=== PATIENT | female | born 1990 | race Caucasian/White ===

== ENCOUNTER 2019-09-01 14:55 | Inpatient (IN) | payer MEDICAID, SELFPAY ==
[2019-09-01] VITALS (36 sets, daily range): BP systolic 114–144; BP diastolic 55–88; PULSE 64–96; TEMP 36.4–37.1; O2SAT 97–99; BMI 38.6
[2019-09-01] MEDS: Lactated Ringers 1,000 ML 200 ML IV (15:10)
--- NOTE | 2019-09-01 15:43 | PCM.HP.OB ---
History Date of Admission: 09/01/19 Final DARIUS: 09/08/19 Final DARIUS Source: US <20 weeks Gestational age: 39 Weeks and 0 Days History of this : This is a 28 year-old, G 1P0 @ 39 weeks, presented to Office with swelling, weight gain and elevated BPs (dewayne BP 166/103) no headaches, Visual changes or RUQ pain. IOL planned for GEST HTN (pre E panel pending) Allergies prednisolone Allergy (Verified 09/01/19 15:28) Swelling Home Medications: Home Medications Albuterol IH (ProAir) [Proair Hfa (SP)Vent Pts] 1 puff INHALATION Q4H PRN PRN 09/01/19 Prenatabs FA 1 tab PO DAILY 09/01/19 Sertraline HCl [Zoloft] 25 mg PO DAILY 09/01/19 Alcohol: None History Past Pregnancies: Past Pregnancies Delivery Date Name GA/ Weeks Outcome Route Wt Infant Sex Labor Length Anesthesia Delivery Location Provider FOB Review of Systems Constitutional: Reports: Weight Change - +7# weight gain in 4 days. Denies: Anorexia Eyes: Denies: Blurred vision, Vision Change HEENT: Denies: Head Aches Cardiovascular: Denies: Chest Pain Gastrointestinal: Denies: Abdominal Pain Physical Exam Vitals: Vital Signs Temp Pulse BP Pulse Ox 98.8 F 96 142/85 H 97 09/01/19 15:23 09/01/19 15:35 09/01/19 15:35 09/01/19 15:23 General: Alert, Oriented x3 Abdomen: Soft, Non Tender Neurological: Cranial nerves II-XII grossly intact MAINTENANCE PARTS TECHNICIAN: Normal external genitalia Estimated gestational size: Appropriate for gestational size Presentation: Cephalic Cervix Dilation (cm): 0 Station: -1 Effacement (%): 90 Assessment/Plan This is a 28 year-old, G 1P0 @ 39 weeks, IOL for GEST HTN 1) admit to L&D 2) monitor VS 3) PITOCIN induction 4) PCN for GBS 5) PRE E labs- pending 6) anticipate
[2019-09-01] MEDS: Oxytocin 30 units/NS 500 ml 30 UNITS/500 ML IV.SOLN IV (15:57)
[2019-09-01 16:01] LABS: Absolute Lymphocyte Count 3.04 X10^3/uL (0.83-4.51); Basophil# 0.05 X10^3/uL; Basophil% 0.3 % (0-1); Eosinophil# 0.03 X10^3/uL; Eosinophils% 0.2 % (0-5); Hematocrit 39.2 % (37-47); Hemoglobin 13.6 g/dL (12.0-15.0); Lymphocyte # 3.04 X10^3/ul (4.0); Lymphocyte % 19.6 % (19-41); Mean Corp Hgb Conc 34.7 g/dL (32-36); Mean Corpuscular Volume 86.3 fL (81-99); Mean Platelet Vol. 12.7 fl (6.2-12.0); Monocyte# 1.19 X10^3/uL; Monocyte% 7.7 % (0-10); NRBC Flagged by Analyzer 0 % (0-5); Neutrophil # 10.97 X10^3/uL (2.7-7.7); Neutrophil % 70.7 % (47-70); Platelet Count 195 K/mm3 (150-450); RBC Distribution Width CV 13.5 % (11.6-14.6); RBC Distribution Width SD 41.9 fl (35.1-43.9); Red Blood Count 4.54 M/mm3 (4.2-5.4); White Blood Count 15.5 K/mm3 (4.4-11.0)
[2019-09-01 16:18] LABS: Protein, Urine (Random) < 6.0 mg/dL (<11.9)
[2019-09-01 16:23] LABS: Partial Thromboplast Time 25.4 Seconds (24.1-36.2)
[2019-09-01 16:28] LABS: AST(SGOT) 25 U/L (15-37); Alanine Aminotransfer ALT/SGPT 19 U/L (13-56); Creatinine, Serum 0.59 mg/dL (0.55-1.02); EST Glomerular Filtration Rate 128 mL/min (>60); Est Glom Filt Rate - Afr Amer 155 mL/min (>60); Estimated Creatinine Clearance 107.12 ml/min; Uric Acid 6.7 mg/dL (2.6-6.0)
[2019-09-01] MEDS: Lactated Ringers 500 ML 999 ML IV (21:20)
[2019-09-01] MEDS: fentaNYL-bupivacaine (epidural) 100 ML BAG EPIDURAL (22:07)
[2019-09-02] VITALS (64 sets, daily range): BP systolic 102–138; BP diastolic 57–80; PULSE 64–100; RESP 16–20; TEMP 36.2–37.4; O2SAT 90–100
[2019-09-02] MEDS: Lactated Ringers 1,000 ML 200 ML IV ×3 (00:22→11:45)
[2019-09-02] MEDS: Acetaminophen 325 MG Tablet PO ×2 (00:26→07:41)
[2019-09-02] MEDS: fentaNYL-bupivacaine (epidural) 100 ML BAG EPIDURAL ×4 (02:32→16:10)
[2019-09-02] MEDS: Lactated Ringers 500 ML 999 ML IV (05:48)
--- NOTE | 2019-09-02 07:53 | PCM.PN.BLA ---
Progress Note Seen at bedside, resting comfortably with epidural in place. Vaginal exam cervix feels very scarred I was able to penetrate through the cervical os and she is now 5-6/90%/0. Pitocin to continue at this time IUPC was placed. Anticipated normal spontaneous vaginal delivery. heart rate category 1 reactive. STROKE Vital Signs/Narrative: Vital Signs Temp Pulse BP Pulse Ox 09/02/19 07:17 77 133/80 H 100 09/02/19 06:39 98.7 F 09/02/19 06:05 74 116/59 L 100 09/02/19 05:22 83 119/62 09/02/19 05:13 98.5 F 67 100 09/02/19 04:01 83 102/59 L 97
[2019-09-02] MEDS: Ondansetron 4 MG/2 ML Vial IV (11:20)
--- NOTE | 2019-09-02 12:07 | PCM.PN.BLA ---
Progress Note pt seen at bedside VE: 9/100/0, Caput noted, position feels OP. pt having back pain. Continue pitocin- will recheck in one hour and start pushing if complete. STROKE Vital Signs/Narrative: Vital Signs Temp Pulse BP Pulse Ox 09/02/19 11:13 71 96 09/02/19 11:12 82 130/69 H 09/02/19 10:22 98.6 F 73 100 09/02/19 10:20 75 131/76 H 09/02/19 09:20 76 133/66 H 100
--- NOTE | 2019-09-02 17:06 | PCM.PN.BLA ---
Progress Note pt seen at bedside, doing well. Has some back pain at site of epidural placement but is otherwise comfortable. pt pushed for 2 hours, rested due to pain and pushed again- head still at 0/+1 with caput and OP position. Pt has good maternal pushing efforts. I discussed continued pushing at this time vs primary c/s for arrest of descent. Pt discussed with her support person and want to proceed with Primary cs at this time. STROKE Vital Signs/Narrative: Vital Signs Temp Pulse BP Pulse Ox 09/02/19 16:00 98.1 F 75 97 09/02/19 15:59 75 137/66 H 09/02/19 14:36 71 98 09/02/19 14:35 98.6 F 69 128/66 H 09/02/19 13:15 98.1 F 72 125/60 H 98
[2019-09-02] MEDS: Sodium Citrate/Citric Acid 30 ML UDC PO (17:09)
--- NOTE | 2019-09-02 17:09 | PCM.OPRPT ---
Delivery Classification: ESTRELLA Final DARIUS: 09/08/19 Final DARIUS Source: US <20 weeks Gestational age: 39 Weeks and 1 Days quirk sander: Zachariah Ibrahim Type of Anesthesia:: Epidural Implants Used: none Date of Procedure: 09/02/19 Pre-Operative Diagnosis: Arrest of descent, OP position of fetus Indications: Patient with good maternal pushing efforts for over 2 hours, no descent of head. fetus in OP position. Indications for : Arrrest of Descent Description of Procedure: After informed consent was obtained the patient was taken the operating room. She was then placed in the supine position. She was prepped and draped in the normal sterile fashion. Epidural Anesthesia was found to be adequate. At this time a Pfannenstiel skin incision was made with a knife was carried down to the underlying layer of the fascia. The fascial incision was then extended laterally using curved Saucedo scissor. Tensions was then turned to the superior aspect of the fascial edge was grasped with 2 straight [place] clamps tented up and the rectus muscle dissected off sharply using curved Saucedo scissor. Attention was then turned to the inferior aspect where again [place] clamps were placed in the rectus muscles were tented up and the fascia was dissected off sharply using the curved Saucedo scissor. Rectus muscles were then in the midline bluntly and peritoneum was entered bluntly. Gentle opposing traction was placed. At this time the vesicouterine peritoneum was identified. Scalpel was used to make a uterine incision in a low transverse fashion. The uterus was then entered bluntly gentle opposing traction was placed to extend this incision. minimal assistance from Push up from vagina to disengage head. 's head was brought to the uterine incision was delivered atraumatically. Cord was clamped and cut was handed to the waiting nursery team. The Placenta was removed from the uterus. The uterus was then removed from the abdominal cavity. The uterus was cleared of all clots and debris using a lap. At this time the uterine incision was reapproximated using #1 Vicryl in a running locked fashion followed by a second imbricating layer.Small extension down left side- Fibrilar placed and Araceli placed after figure of eight suture used to obtain hemostasis. Hemostasis was appreciated. Posterior cul-de-sac was then cleared of all clots and debris. Ovaries and tubes normal. Uterus was placed back in the abdominal cavity. Gutters were cleared of all clots and debris. Uterine incision was reevaluated and noted to be of excellent hemostasis. Araceli placed. At this time the peritoneum and muscle was grasped with Kellys reapproximated using #2 Vicryl suture in a running fashion. Fascia was then reapproximated using #1 PDS in a running fashion. Subcu layer was reapproximated with #2 0 plain gut suture in an interrupted fashion. Subcu layer was closed using 4-0 Monocryl in a subcu fashion. Dry sterile dressing was applied. Instrument lap needle count correct ?2. Anticipated normal postoperative course. Amniotic Membrane Rupture Type: Spontaneous Amniotic Fluid Description: Clear, Moderate meconium - meconium appreciated when pushing Placenta Disposition: [facility] Drain: Quinones to straight drain Cord Entanglement: None Nuchal Cord Compression: Without compression Cord Vessel Description: 3 Vessels Infant Gender: Male (1 minute): 8 (5 minute): 9 Delayed cord clamping: No Antibiotic Given: Ancef 2 grams IV x1, Zithromax 500 mg/5 mL X1 Pt instructed on risks of surgery: Bleeding, Anesthesia Risks, Infection, Injury to surrounding structure(s) including bowel and bladder Complications: None - Admit VTE Documentation VTE Present on Admission: Yes VTE Mechan Device Prophylaxis: SCD's VTE Pharm Prophylaxis ordered?: Yes
[2019-09-02] MEDS: Cefazolin 2 GM in 0.9% Normal Saline 100 ML IV (17:30)
[2019-09-02] MEDS: Carboprost Tromethamine 250 MCG/ML Ampul IM (17:52)
[2019-09-02] MEDS: Oxytocin 30 units/NS 500 ml 30 UNITS/500 ML IV.SOLN 167 UNITS IV (18:35)
[2019-09-02] MEDS: Lactated Ringers 1,000 ML 100 ML IV (22:24)
[2019-09-02] MEDS: Ketorolac 30 MG/ML Syringe IV (23:06)
[2019-09-03] VITALS (15 sets, daily range): BP systolic 108–129; BP diastolic 53–66; PULSE 72–106; RESP 14–20; TEMP 36.6–37.4; O2SAT 96–98
[2019-09-03 04:47] LABS: Hematocrit 30.9 % (37-47); Hemoglobin 10.7 g/dL (12.0-15.0); Mean Corp Hgb Conc 34.6 g/dL (32-36); Mean Corpuscular Hgb 30.1 pg (27.0-32.0); Mean Platelet Vol. 12.4 fl (6.2-12.0); Platelet Count 150 K/mm3 (150-450); RBC Distribution Width CV 13.2 % (11.6-14.6); RBC Distribution Width SD 41.7 fl (35.1-43.9); Red Blood Count 3.55 M/mm3 (4.2-5.4); White Blood Count 23.6 K/mm3 (4.4-11.0)
[2019-09-03] MEDS: Ketorolac 30 MG/ML Syringe IV ×3 (05:51→18:06)
[2019-09-03] MEDS: 0.9% Saline Lock 10 ML Syringe IV ×3 (05:51→18:06)
[2019-09-03] MEDS: Acetaminophen 500 MG Tablet 1000 MG PO (08:58)
--- NOTE | 2019-09-03 09:17 | PCM.PN.OB ---
Subjective: Doing well per patient and nursing staff. without difficulty. Denies headache or visual changes. Lochia normal. Pain controlled. Ambulating and taking PO without difficulty. Voiding and passing flatus. - Physical Exam Vitals/I&O's: Vital Signs Temp Pulse Resp BP Pulse Ox 99 F 72 18 109/60 96 09/03/19 04:17 09/03/19 08:40 09/03/19 05:05 09/03/19 08:40 09/03/19 05:05 Oxygen Delivery Method Room Air Weight: 204 lb 6 oz Body Mass Index (BMI) 38.6 Intake and Output for Last 24 Hours 09/01/19 09/02/19 09/03/19 23:59 23:59 23:59 Intake Total 1202.10 / 1202.10 5205.63 / 5205.63 2160 / 2160 Output Total 600 / 600 1750 / 1750 1000 / 1000 Balance 602.10 / 602.10 3455.63 / 3455.63 1160 / 1160 General: Alert, Oriented x3, Cooperative HEENT: Atraumatic, Normocephalic Neck: Trachea Midline Lungs: Clear to auscultation, Normal air movement, No rhonchi, No wheeze Cardiovascular: Regular rate, Regular Rhythm, No murmurs Abdomen: Bowel Sounds Present - Fundus firm 2 below U. Dressing dry and intact. Appropriately tender., Soft Extremities: Edema - +1 BLE pitting edema. Andrew's negative. SCDs in place Neurological: Deep Tendon Reflexes 2+/4 and Symmetrical Psych/Mental Status: Normal Affect, Appropriate Laboratory Results 09/03/19 04:30: WBC 23.6 H, RBC 3.55 L, Hgb 10.7 L, Hct 30.9 L, MCV 87.0, MCH 30.1, MCHC 34.6, RDW Std Deviation 41.7, RDW Coeff of Juan Daniel 13.2, Plt Count 150, MPV 12.4 H Current Medications Acetaminophen (Tylenol) 1,000 mg PO Q8H PRN PRN Reason: Pain Score 1-3/10 Last Admin: 09/03/19 08:58 Dose: 1,000 mg Documented by: Bisacodyl (Dulcolax) 10 mg RECTAL UD PRN PRN Reason: If no BM Diphenhydramine HCl (Benadryl) 25 mg PO Q6H PRN PRN PRN Reason: ITCHING Stop: 09/03/19 20:09 Enoxaparin Sodium (Lovenox) 40 mg SC DAILY [facility] Hydrocortisone (Hytone) 1 applic TOPICAL TID PRN PRN; Protocol PRN Reason: Discomfort Naloxone HCl 4 mg/ Dextrose 504 mls @ 0 mls/hr IV .Q0M PRN; Protocol PRN Reason: Respiratory depression Naloxone HCl 4 mg/ Dextrose 504 mls @ 0 mls/hr IV .Q0M PRN; Protocol PRN Reason: To maintain Resp. rate >10 Ibuprofen (Motrin) 600 mg PO Q6H PRN PRN PRN Reason: Pain Score 1-3/10 Ketorolac Tromethamine (Toradol (Bkc)) 30 mg IV Q6 RUBIA Stop: 09/04/19 18:01 Last Admin: 09/03/19 05:51 Dose: 30 mg Documented by: Methylergonovine Maleate (Methergine) 0.2 mg IM X1 PRN PRN Reason: Uterine Atony Naloxone HCl (Narcan) 0.02 mg IV Q1M PRN PRN Reason: RR <10 and pt unresponsive Ondansetron HCl (Zofran) 4 mg IV Q4H PRN PRN PRN Reason: Nausea Oxycodone HCl (Oxyir) 5 - 10 mg PO Q4H PRN PRN PRN Reason: Pain Score 4-10/10 Prochlorperazine Edisylate (Compazine Iv) 10 mg IV Q6H PRN PRN PRN Reason: NAUSEA Senna/Docusate Sodium (Senokot-S, [place]erda-Colace) 0 tablet PO DAILY PRN PRN Reason: Constipation Sertraline HCl (Zoloft) 25 mg PO DAILY [facility] Simethicone (Mylicon) 80 mg PO PCHS PRN PRN Reason: Indigestion/stomach pain Sodium Chloride () 5 - 15 ml IV UD PRN PRN Reason: SALINE FLUSH Last Admin: 09/03/19 05:51 Dose: 10 ml Documented by: Medical Necessity - Tobacco Use Smoking Status: Never smoker Assessment/Plan A:POD #1 Primary section for arrest of descent P: 1) Routine care 2) WBC 23 elevated, repeat CBC in am. Afebrile 3) BP stable, no signs of preeclampsia 4) support 5) Pain management.
[2019-09-03] MEDS: Enoxaparin 40 MG/0.4 ML Syringe SC (11:03)
[2019-09-03] MEDS: Senna/Docusate Sodium 1 Tablet PO (11:03)
[2019-09-03] MEDS: Sertraline 50 MG Tablet 25 MG PO (11:03)
--- NOTE | 2019-09-03 16:30 | CASEMGMT ---
Social Work Assessment Labor and Delivery Unit Date of Referral: 09/03/2019 Time of Referral: 01:00 Date of Intervention: 09/03/19 Time of Intervention: 16:30 Reason for Referral: HISTORY OF DEPRESSION AND ANXIETY, FATHER OF BABY NOT INVOLVED, SUPPORT History obtained from: MEDICAL RECORD, MOTHER OF BABY (MOB) Household composition: MOB LIVES HOME WITH HER MOTHER Financial Status: LIMITED Infant Supplies: MOB REPORTS HAS ALL NEEDS MET FOR BABY INCLUDING; CLOTHES, DIAPERS, WIPES, CAR SEAT, CRIB ETC Childcare/Caregiver(s): MOB WILL BE PRIMARY CAREGIVER. MOTHER WILL ASSIST NEEDED. Transportation: MOB REPORTS NO ISSUES WITH TRANSPORTATION Programs/Agencies Involved: [facility] Children Services/Legal Issues: NONE REPORTED Behavioral Health Issues: Mental Health History: MOB REPORTS HISTORY OF ANXIETY AND DEPRESSION THAT STARTED 10 YEARS AGO. MOB REPORTS IS TREATED WITH MEDICATION AND HAS DONE COUNSELING IN THE PAST. MOB REPORTS MENTAL HEALTH IS WELL MANAGED. Substance Use History: MOB DENIES ANY HISTORY OF SUBSTANCE USE. Family/Social Stressors: FATHER OF BABY NOT INVOLVED Support Systems: MOB REPORTS GOOD SUPPORT FROM MOTHER AND FAMILY Depression/Shaken Baby/Safe Sleeping EDUCATIONAL INFORMATION REVIEWED AND PROVIDED. ASSESSMENT: MET WITH MOB AND HER MOTHER IN ROOM. INTRODUCED ROLE AND REASON FOR REFERRAL. MOB GAVE PERMISSION FOR THIS WORKER TO SPEAK OPENLY WITH HER MOTHER PRESENT. UPON ENTERING ROOM, MOB SITTING UP IN BED HOLDING BABY BOYTIARA. MOB REPORTS LIVES HOME WITH HER MOTHER, FATHER OF BABY NOT INVOLVED. MOB REPORTS GOOD SUPPORT FROM FAMILY AND MOTHER. MOB IS S/P AND STATES IS DOING WELL. MOB IS AND REPORTS BABY IS DOING WELL WITH NURSING. MOB DISCUSSED MENTAL HEALTH HISTORY AND TREATMENT WITH MEDICATION. MOB STATES MEDICATIONS ARE MANAGED BY PRIMARY CARE PHYSICIAN, DR. TAM. MOB DENIES ANY HISTORY OF SUBSTANCE USE. REVIEWED SIGNS/SYMPTOMS OF POST DEPRESSION AND PROVIDED MOB WITH EDUCATIONAL HANDOUTS. MOB DENIES ANY ISSUES OR CONCERNS. NURSING UPDATED. PLAN: HOME WITH RESOURCES PROVIDED. No other services requested or indicated. -Sully Wiseman, MANAGER RENTAL, DISABILITY ATTORNEY
[2019-09-03] MEDS: oxyCODONE 5 MG Tablet PO (20:54)
[2019-09-04] MEDS: Ketorolac 30 MG/ML Syringe IV (00:02)
[2019-09-04] MEDS: 0.9% Saline Lock 10 ML Syringe IV (00:02)
[2019-09-04 01:07] VITALS: BP 118/64; PULSE 72; RESP 14; TEMP 36.6
[2019-09-04 04:33] LABS: Absolute Lymphocyte Count 3.82 X10^3/uL (0.83-4.51); Absolute Neutrophil Count 12.5 X10^3/uL (2.0-7.7); Basophil# 0.05 X10^3/uL; Basophil% 0.3 % (0-1); Eosinophil# 0.13 X10^3/uL; Eosinophils% 0.7 % (0-5); Hematocrit 27.6 % (37-47); Hemoglobin 9.4 g/dL (12.0-15.0); Lymphocyte # 3.82 X10^3/ul (4.0); Mean Corp Hgb Conc 34.1 g/dL (32-36); Mean Corpuscular Hgb 30.2 pg (27.0-32.0); Mean Corpuscular Volume 88.7 fL (81-99); Monocyte# 1.52 X10^3/uL; Monocyte% 8.3 % (0-10); NRBC Flagged by Analyzer 0 % (0-5); Neutrophil % 68.5 % (47-70); POSITIVE DIFFERENTIAL YES; Platelet Count 139 K/mm3 (150-450); RBC Distribution Width CV 13.8 % (11.6-14.6); RBC Distribution Width SD 44.6 fl (35.1-43.9); Red Blood Count 3.11 M/mm3 (4.2-5.4); White Blood Count 18.2 K/mm3 (4.4-11.0)
[2019-09-04 04:35] LABS: Differential Indicated SCAN CRITERIA MET
[2019-09-04 05:16] LABS: Differential Comment SCANNED
[2019-09-04 05:17] LABS: Atypical Lymphocyte RARE %
[2019-09-04] MEDS: oxyCODONE 5 MG Tablet PO (05:52)
--- NOTE | 2019-09-04 07:56 | PCM.PN.OB ---
Subjective: pt seen at bedside, doing well. pt reports good pain control. lochia mild. Breast feeding. Denies CP, SOB, dizziness. Voiding w/o difficulty, passing flatus - Physical Exam Vitals/I&O's: Vital Signs Temp Pulse Resp BP Pulse Ox 97.8 F 72 14 118/64 96 09/04/19 01:07 09/04/19 01:07 09/04/19 01:07 09/04/19 01:07 09/03/19 05:05 Oxygen Delivery Method Room Air Weight: 92.703 kg Body Mass Index (BMI) 38.6 Intake and Output for Last 24 Hours 09/02/19 09/03/19 09/04/19 23:59 23:59 23:59 Intake Total 5205.63 / 5205.63 2160 / 2160 Output Total 1750 / 1750 1800 / 1800 Balance 3455.63 / 3455.63 360 / 360 General: Alert, Oriented x3 Abdomen: - - fundus firm Extremities: No Calf Tenderness Laboratory Results 09/04/19 04:25: WBC 18.2 H, RBC 3.11 L, Hgb 9.4 L, Hct 27.6 L, MCV 88.7, MCH 30.2, MCHC 34.1, RDW Std Deviation 44.6 H, RDW Coeff of Juan Daniel 13.8, Plt Count 139 L, MPV 12.0, Immature Gran % (Auto) 1.200 H, Neut % (Auto) 68.5, Lymph % (Auto) 21.0, Armstrong % (Auto) 8.3, Eos % (Auto) 0.7, Baso % (Auto) 0.3, Absolute Neuts (auto) 12.5 H, Absolute Lymphs (auto) 3.82, Nucleated RBC % 0, Differential Comment SCANNED, Diff Path Review May foll, Atypical Lymphocytes RARE Current Medications Acetaminophen (Tylenol) 1,000 mg PO Q8H PRN PRN Reason: Pain Score 1-3/10 Last Admin: 09/03/19 08:58 Dose: 1,000 mg Documented by: Bisacodyl (Dulcolax) 10 mg RECTAL UD PRN PRN Reason: If no BM Enoxaparin Sodium (Lovenox) 40 mg SC DAILY [facility] Last Admin: 09/03/19 11:03 Dose: 40 mg Documented by: Hydrocortisone (Hytone) 1 applic TOPICAL TID PRN PRN; Protocol PRN Reason: Discomfort Naloxone HCl 4 mg/ Dextrose 504 mls @ 0 mls/hr IV .Q0M PRN; Protocol PRN Reason: Respiratory depression Naloxone HCl 4 mg/ Dextrose 504 mls @ 0 mls/hr IV .Q0M PRN; Protocol PRN Reason: To maintain Resp. rate >10 Ibuprofen (Motrin) 600 mg PO Q6H PRN PRN PRN Reason: Pain Score 1-3/10 Ketorolac Tromethamine (Toradol (Bkc)) 30 mg IV Q6 [facility] Stop: 09/04/19 18:01 Last Admin: 09/04/19 06:16 Dose: Not Given Documented by: Methylergonovine Maleate (Methergine) 0.2 mg IM X1 PRN PRN Reason: Uterine Atony Naloxone HCl (Narcan) 0.02 mg IV Q1M PRN PRN Reason: RR <10 and pt unresponsive Ondansetron HCl (Zofran) 4 mg IV Q4H PRN PRN PRN Reason: Nausea Oxycodone HCl (Oxyir) 5 - 10 mg PO Q4H PRN PRN PRN Reason: Pain Score 4-10/10 Last Admin: 09/04/19 05:52 Dose: 10 mg Documented by: Prochlorperazine Edisylate (Compazine Iv) 10 mg IV Q6H PRN PRN PRN Reason: NAUSEA Senna/Docusate Sodium (Senokot-S, [place]-Colace) 0 tablet PO DAILY PRN PRN Reason: Constipation Last Admin: 09/03/19 11:03 Dose: 2 tablet Documented by: Sertraline HCl (Zoloft) 25 mg PO DAILY [facility] Last Admin: 09/03/19 11:03 Dose: 25 mg Documented by: Simethicone (Mylicon) 80 mg PO PCHS PRN PRN Reason: Indigestion/stomach pain Sodium Chloride () 5 - 15 ml IV UD PRN PRN Reason: SALINE FLUSH Last Admin: 09/04/19 00:02 Dose: 10 ml Documented by: Medical Necessity - Tobacco Use Smoking Status: Never smoker Assessment/Plan POD#2, doing well routine care pain mgmt labs reviewed dc home
--- NOTE | 2019-09-04 08:02 | DCINST_ITS ---
Discharge Diet: No Restrictions Discharge Activity: Return to Normal Activity, May Not Drive - for 2 weeks, May not drive while taking narcotic pain medications., May Shower, May Take a Tub Bath - in 7 days. May resume sexual activity in: 4-6 weeks Lifting Restrictions: 20 pounds Additional Activity Instructions:: Nothing in the vagina for 4-6 weeks. You may return to work/school in 6 weeks. Call your doctor if your incision/area has: Continuous Slow Oozing, Sudden Increased Bleeding, Increased Pain/ Swelling, Increased Redness, Foul Smelling Discharge Call your doctor if you observe: Fever of 101 or Higher, Using more than one pad per hour - for 2 hours Suture Line Care: Avoid Pulling/Pushing, Avoid Pinching/Bending Cleanse incision/area with: Keep Dressing Clean & Dry Additional Instructions: If you experience any of the following, contact your healthcare provider. * Bleeding that soaks a pad every hour for 2 hours * Fever 100.4 or higher * Unrelieved incision or abdominal pain * Swelling, redness, discharge or bleeding from your incision or episiotomy site * Your incision begins to separate * Problems urinating (including inability to urinate or burning while urinating). * Visual changes * Severe headache * Flu-like symptoms * Pain or redness in one of both of your breasts * Pain, warmth, tenderness or swelling in your legs, especially the calf area * Frequent nausea and vomiting * Symptoms of depression or anxiety If you experience any of the following, call 911 or go to the nearest Emergency Room. * Chest pain * Problems breathing * Seizure activity * Partial or complete paralysis of a body part, slurred speech, weakness or drooping of the face, or a sudden inability to walk or hold your balance Allergies/Adverse Reactions: Allergies prednisolone Allergy (Verified 09/01/19 15:28) Swelling Medications to take at Discharge Albuterol IH (ProAir) [Proair Hfa] 1 puff INHALATION Q4H PRN PRN 09/01/19 Prenatabs FA 1 tab PO DAILY 09/01/19 Sertraline HCl [Zoloft] 25 mg PO DAILY 09/01/19 Acetaminophen [Tylenol] 1,000 mg PO Q8H PRN #60 tab 09/04/19 Ibuprofen [Motrin] 600 mg PO Q6H PRN PRN #60 tab 09/04/19 Oxycodone [Oxyir] 5 - 10 mg PO Q4H PRN PRN 7 Days #20 tablet 09/04/19 Senna/Docusate Sodium [Senokot-S] 1 tab PO DAILY PRN #30 tab 09/04/19 SimETHICONE [Mylicon] 80 mg PO PCHS PRN #30 tab 09/04/19 The following prescriptions were given: Ibuprofen [Motrin] 600 mg PO Q6H PRN PRN #60 tab PRN Reason: Pain Score 1-3/10 Transmission Status: Pending to [id number] SimETHICONE [Mylicon] 80 mg PO PCHS PRN #30 tab PRN Reason: Indigestion/stomach pain Transmission Status: Pending to [id number] Oxycodone [Oxyir] 5 - 10 mg PO Q4H PRN PRN 7 Days #20 tablet PRN Reason: Pain Score 4-10/10 Transmission Status: Sent to [id number] Senna/Docusate Sodium [Senokot-S] 1 tab PO DAILY PRN #30 tab PRN Reason: Constipation Transmission Status: Pending to [id number] Acetaminophen [Tylenol] 1,000 mg PO Q8H PRN #60 tab PRN Reason: Pain Score 1-3/10 Transmission Status: Pending to [id number] Follow-Up: Call to make an appointment with your doctor for an incision check in 1-2 weeks. You will also need a 6 week post- follow up appointment. Test results from this visit will be discussed in further detail at your follow- up appointment, if applicable. Please Follow Up With: Ruby Post MD - Call to make an appointment for an incision check in 1-2 [phone] When: You will need a post- check in 6 weeks. Primary Care Physician: Henry Miner [Primary Care Provider] -
[2019-09-04 08:17] VITALS: BP 124/69; PULSE 82; RESP 16; TEMP 36.9; O2SAT 95
[2019-09-04 08:19] VITALS: BP 124/69; PULSE 77
[2019-09-04] MEDS: Sertraline 50 MG Tablet 25 MG PO (08:29)
[2019-09-04] MEDS: Enoxaparin 40 MG/0.4 ML Syringe SC (08:29)
[2019-09-04] MEDS: Ibuprofen 600 MG Tablet PO (08:30)
[2019-09-04] MEDS: Senna/Docusate Sodium 1 Tablet PO (08:30)
[2019-09-04 11:25] VITALS: BP 129/72; PULSE 84; PULSE 89; O2SAT 97
[2019-09-04 11:34] VITALS: BP 129/72; PULSE 89; RESP 16; TEMP 36.9
[2019-09-04 12:00] LABS: Pathologist Review Reviewed
== END 2019-09-04 12:00 | disposition home or self-care (01) | DRG 540 ==
PROVIDERS: Advanced Practice Midwife; Admitting Provider Obstetrics & Gynecology; PCP Student in an Organized Health Care Education/Training Program; Referring Provider Obstetrics & Gynecology; Visit Provider Obstetrics & Gynecology
DX: O13.4 Gestational [pregnancy-induced] hypertension without significant proteinuria, complicating childbirth (principal); O62.1 Secondary uterine inertia; O75.89 Other specified complications of labor and delivery; O77.0 Labor and delivery complicated by meconium in amniotic fluid; Z79.899 Other long term (current) drug therapy; Z3A.39 39 weeks gestation of pregnancy; Z37.0 Single live birth
CPT/HCPCS: 59025; 59050; 82565; 82570; 84156; 84450; 84460; 84550; 85025; 85027; 85610; 85730; 86850; 86900; 86901; 99218; J7120; A4216; G0378; J2405

== ENCOUNTER 2022-05-08 12:25 | Emergency (ER) | payer MEDICAID, SELFPAY ==
[2022-05-08 12:27] VITALS: BP 128/107; PULSE 122; RESP 20; TEMP 36.6; O2SAT 100; BMI 33.0
[2022-05-08 12:36] VITALS: BP 160/98; PULSE 89; RESP 16; O2SAT 98
--- NOTE | 2022-05-08 13:05 | CT_ITS ---
STUDY: CT BRAIN WITHOUT CONTRAST REASON FOR EXAM: Female, 31 years old. Numbness LUE, blurred vision right eye RADIATION DOSAGE (If Supplied By Facility): CTDIvol = ( 47.06 ) mGy, DLP = ( 802.10 ) mGycm TECHNIQUE: Transaxial CT imaging of the brain was performed without administration of intravenous contrast material. Individualized dose optimization techniques were used for this CT. COMPARISON: No relevant priors. FINDINGS: Normal soft tissue structures. Normal calvarium. Normal size ventricles and extra-axial spaces for the patient''s age. Normal white matter tracts of the cerebral hemispheres. Normal basal ganglia and thalami. Normal brainstem. Normal cerebellum. There is no intracranial hemorrhage. There are no findings of an acute ischemic infarction. Normal visualized paranasal sinuses. CT/Brain/Head without Contrast IMPRESSION: Normal unenhanced CT scan of the brain. Electronically Signed: Bernardo Price MD at 14:00 EST ,
--- NOTE | 2022-05-08 13:05 | EKG12_ITS ---
Test Reason : Blood Pressure : / mmHG Vent. Rate : 094 BPM Atrial Rate : 094 BPM P-R Int : 136 ms QRS Dur : 078 ms QT Int : 356 ms P-R-T Axes : 055 060 038 degrees QTc Int : 445 ms Normal sinus rhythm Normal ECG Confirmed by SHY JJ, UVALDO ([id number]), subeditor TROY MARCOS ([id number]) on 05/10/2022 8:57:31 AM Referred By: RADHA Confirmed By:UVALDO BEGUM MD
--- NOTE | 2022-05-08 13:11 | NURSING ---
NO OLD EKGS
[2022-05-08 13:48] LABS: Absolute Lymphocyte Count 2.53 X10^3/uL (0.83-4.51); Absolute Neutrophil Count 9.7 X10^3/uL (2.0-7.7); Anion Gap 9 (5-15); BUN 10 mg/dL (7-18); BUN/Creat Ratio 11.7 RATIO (10-20); Basophil# 0.08 X10^3/uL; Basophil% 0.6 % (0-1); Calcium,Total 9.6 mg/dL (8.5-10.1); Chloride 105 mmol/L (98-107); Creatinine, Serum 0.86 mg/dL (0.55-1.02); EST Glomerular Filtration Rate 82 mL/min (>60); Eosinophil# 0.02 X10^3/uL; Eosinophils% 0.2 % (0-5); Est Glom Filt Rate - Afr Amer 99 mL/min (>60); Estimated Creatinine Clearance 71.52 ml/min; Glucose 89 mg/dL (74-106); Hematocrit 45.5 % (37-47); Hemoglobin 15.2 g/dL (12.0-15.0); Lymphocyte # 2.53 X10^3/ul (0.83-4.51); Lymphocyte % 19.3 % (19-41); Mean Corp Hgb Conc 33.4 g/dL (32-36); Mean Corpuscular Hgb 28.7 pg (27.0-32.0); Mean Platelet Vol. 11.8 fl (6.2-12.0); Monocyte# 0.69 X10^3/uL; Monocyte% 5.3 % (0-10); NRBC Flagged by Analyzer 0 % (0-5); Neutrophil # 9.72 X10^3/uL (2.7-7.7); Neutrophil % 74.1 % (47-70); Platelet Count 284 K/mm3 (150-450); Potassium 3.6 mmol/L (3.5-5.1); RBC Distribution Width CV 12.5 % (11.6-14.6); RBC Distribution Width SD 38.9 fl (35.1-43.9); Red Blood Count 5.29 M/mm3 (4.2-5.4); Sodium Level 139 mmol/L (136-145); White Blood Count 13.1 K/mm3 (4.4-11.0)
--- NOTE | 2022-05-08 14:11 | EX.ED.DYSGE1 ---
HPI History of Present Illness Chief Complaint: Dizziness Detail of Chief Complaint: Visual disturbance right eye, numbness weakness left upper extremity, anxio Informant: patient and parent Onset/Context/Timing Onset: - (Patient's been having symptoms for several days and HPI narrative) Timing: Intermittent and Waxes and wanes Quality: Multiple symptoms please read HPI narrative Location: Ocular, extremity, headache Current Severity: Moderate Maximum Severity: Severe Worsened by: Possibly anxiety Relieved by: Nothing Associated Symptoms Associated Symptoms: HPI narrative Narrative Narrative: Pain is a 31-year-old female with history of hypertension, hypothyroidism, depression/anxiety as well as hyperlipidemia who presents with a constellation of symptoms. She has recently been seen by her primary care physician for muscular back pain. She had x-rays that were performed. Attempted to review office records from Dr. Barfield and images performed at [facility] were unsuccessful using [employer]. Patient does endorse being anxious. She complains of global headache. She states her right vision is blurry. She denies trouble with speech or swallowing. She does complain of weakness and numbness left upper extremity only. She denies problems with coordination or balance. She does report nausea with no other GI symptoms. She denies symptoms. She denies gynecologic symptoms. When asked if she is nervous she stated yes. Prior similar symptoms: No Recent Illness/Hospitalization: Yes [facility] Medical History Numbness Home Medications acetaminophen 500 mg tablet 1,000 mg PO Q8H PRN Pain Score 1-3/10 #60 tabs 09/04/19 [Rx Last Taken Unknown] ibuprofen 600 mg tablet 600 mg PO Q6H PRN PRN Pain Score 1-3/10 #60 tabs 09/04/19 [Rx Last Taken Unknown] atorvastatin 10 mg tablet 10 mg PO QHS 05/08/22 [History Last Taken Unknown] bupropion HCl 300 mg 24 hr tablet, extended release (Wellbutrin XL) 300 mg PO DAILY 05/08/22 [History Last Taken Unknown] rnoryraxbe-udtgvjuzlicqg-wmugvmep 50 mg-300 mg-40 mg capsule 1 cap PO DAILY PRN caffeine 05/08/22 [History Last Taken Unknown] fluoxetine 20 mg capsule (Prozac) 20 mg PO DAILY 05/08/22 [History Last Taken Unknown] levothyroxine 50 mcg tablet (Euthyrox) 50 mcg PO DAILY 05/08/22 [History Last Taken Unknown] orphenadrine citrate 100 mg tablet,extended release 100 mg PO BID 05/08/22 [History Last Taken Unknown] vitamin B complex 1 cap PO QHS 05/08/22 [History Last Taken Unknown] Allergy/AdvReac Type Severity Reaction Status Date / Time prednisolone Allergy Swelling Verified 05/08/22 12:29 Social History (Updated 05/08/22 @ 14:[address] Miguel A aCmpa MD) household members: children Smoking Status: Never smoker substance use type: does not use ROS ROS ED Constitutional Constitutional ED: Denies chills, fever(s), subjective, sweats or weight loss Eyes Eyes: Reports blurry vision right; Denies change in vision or diplopia ENT ENT ED: Reports other Details: Denies trouble with speech or swallowing. ; Denies ear pain, rhinorrhea or sore throat Cardiovascular Cardiovascular: Reports chest pain and palpitations; Denies orthopnea, paroxysmal nocturnal dyspnea or racing heartbeat Respiratory/Chest Respiratory/Chest: Reports dyspnea; Denies cough, dyspnea on exertion, orthopnea or paroxysmal nocturnal dyspnea Gastrointestinal Gastrointestinal: Reports nausea; Denies abdominal pain, constipation, diarrhea, melena or vomiting Genitourinary Genitourinary ED: Denies dysuria, hematuria or urinary frequency Musculoskeletal Musculoskeletal: Reports back pain; Denies arthralgias, myalgias or neck pain Integumentary Denies abscess, Abrasions or rash Neurologic Neurologic: Reports headache(s), paresthesias and weakness Psychiatric Psychiatric: Reports anxiety and depression Hematologic/Lymphatic Hematologic/Lymphatic: Reports systems reviewed and no addt'l complaints, except as documented; Denies anemia EXAM Physical Exam Const Vital Signs: 05/08/22 12:27 05/08/22 12:36 05/08/22 12:41 Temperature 97.9 F Temperature Source Temporal Pulse Rate 122 H 89 Respiratory Rate 20 H 16 Respiratory Effort Normal Non-Labored Respiratory Pattern Normal Blood Pressure 128/107 H 160/98 H Blood Pressure Mean 114 118 Pulse Ox 100 98 Oxygen Delivery Method Room Air Room Air 05/08/22 14:20 Temperature Temperature Source Pulse Rate 98 Respiratory Rate 18 Respiratory Effort Respiratory Pattern Blood Pressure 142/86 H Blood Pressure Mean 104 Pulse Ox 100 Oxygen Delivery Method Room Air Positive well nourished, well developed and obese Constitutional Narrative: Patient is flushed. Patient appears anxious. Patient reports trouble with speech. Her speech is normal. General Appearance ED: well developed; Negative for cyanotic, diaphoretic, NAD or pallor Nutritional Appearance: obese HEENT Reports dry mucous membranes HEENT Narrative: Head is atraumatic normocephalic. Ears normal. TMs normal. Nares patent. Uvula midline. No deviation tongue or protrusion. Speech is normal. Mouth ED: Yes dry mucous membranes Mouth: dry mucous membranes Eyes PERRL and EOMs intact bilaterally Eyes Narrative: There is no APD. There is no nystagmus. Cup-to-disc ratio is normal. There is no papilledema. Venous pulsations noted bilaterally. General Eye ED: Negative for pale conjunctiva or scleral icterus Neck no lymphadenopathy, supple and no JVD Chest Wall inspection of chest normal and palpation of chest normal Resp normal respiratory effort and clear to auscultation bilaterally Cardio regular rhythm, S1 normal heart sound, S2 normal heart sound and no murmurs Rate: tachycardic GI normal to inspection, nondistended, normoactive bowel sounds, non-tender, non-distended and no masses; Negative for hepatosplenomegaly Auscultation: normoactive bowel sounds Palpation: soft Back/Spine no CVA tenderness Extremity normal to inspection General Extremety ED: Negative for edema or tenderness General Extremity: Negative for edema Neuro oriented x3 and CN's II-XII intact bilaterally Neuro Narrative: Patient reports a patchy numbness dorsal radial side of the left forearm. It is not in a dermatomal pattern. There is no dysmetria. Reflexes are 3-4+ at the bicep, brachialis, tricep, patella and ankle. There is no clonus or Babinski sign. Patient has bilateral's Chvostek sign. Sensorium / Orientation: alert Motor Exam: strength 5/5 throughout Psych Mood & Affect: anxious Skin no rashes or lesions noted, no wounds and skin turgor normal General Skin Exam: Negative for jaundice or pallor MDM MDM MDM Narrative Medical decision making narrative: She has a constellation of symptoms. We will obtain electrolyte panel to rule out hyponatremia and hypocalcemia. CT because of her neurologic symptoms. Doubt this to be MS since patient denies photophobia and there is no evidence of inflammation of the right optic nerve. CBC was obtained to assess H&H. CAT scan to rule out any intracranial process. ABG was obtained to assess for respiratory alkalosis since clinically patient is hyperventilating. When I entered the room to inform patient of her results her heart rate sped up from the 90s to 120. Lab Data Attestation: I reviewed the patient's lab results. Lab results narrative: White count is slightly elevated with mild shift. There is no bandemia. Electrolyte panel is unremarkable. ABG was not available. I was made aware that the ABG was not drawn because it was question by the therapist why I ordered it. Once I informed that we will have a ordered he performed the test. Labs: Laboratory Results - last 24 hr 05/08/22 05/08/22 13:25 13:25 WBC 13.1 H RBC 5.29 Hgb 15.2 H Hct 45.5 MCV 86.0 MCH 28.7 MCHC 33.4 RDW Std Deviation 38.9 RDW Coeff of Juan Daniel 12.5 Plt Count 284 MPV 11.8 Immature Gran % (Auto) 0.500 Neut % (Auto) 74.1 H Lymph % (Auto) 19.3 [place] % (Auto) 5.3 Eos % (Auto) 0.2 Baso % (Auto) 0.6 Absolute Neuts (auto) 9.7 H Absolute Lymphs (auto) 2.53 Nucleated RBC % 0 Sodium 139 Potassium 3.6 Chloride 105 Carbon Dioxide 25.0 Anion Gap 9 BUN 10 Creatinine 0.86 Estim Creat Clear Calc 71.52 Est GFR (MDRD) Af Amer 99 Est GFR (MDRD) Non-Af 82 BUN/Creatinine Ratio 11.7 Glucose 89 Calcium 9.6 ABG Data ABG results: ABG 05/08/22 14:34 Specimen Type ART Sample Site L Radial pH 7.46 H Bicarbonate Actual 22.2 Total CO2 23 Base Excess -2 O2 Saturation 99 O2 % 21 ABG pCO2 31.5 L ABG pO2 121 H Candelario Test Positive O2 Delivery Device Room Air Radiography Diagnostic Testing: Clinical Impression(s) from Imaging Studies Brain CT 05/08/22 13:05 IMPRESSION: Normal unenhanced CT scan of the brain. Electronically Signed: Bernardo Price MD at 14:00 EST , Treatment and Re-Evaluation Narrative: Patient and mother were informed of laboratory results. Patient was discharged to home with appropriate home-going instructions to follow-up with her primary care for the third who is prescribing her anti-insulin expenses is felt to be due to anxiety. Patient does admit that she is high strung . Discharge Plan Triage Chief Complaint: Dizziness ED Provider: Miguel A Campa Dx/Rx/DC Orders Clinical Impression: Acute hyperventilation syndrome, Paresthesia of left upper extremity, Blurred vision, right eye, Sinus tachycardia Instructions: ED Hyperventilation Syndrome Prescriptions: No Action acetaminophen 500 MG tablet 1,000 mg PO Q8H PRN (Reason: Pain Score 1-3/10) Qty: 60 0RF ibuprofen 600 MG tablet 600 mg PO Q6H PRN PRN (Reason: Pain Score 1-3/10) Qty: 60 0RF atorvastatin 10 mg Tablet 10 mg PO QHS levothyroxine [Euthyrox] 50 mcg tablet 50 mcg PO DAILY vitamin B complex Capsule 1 cap PO QHS bupropion HCl [Wellbutrin XL] 300 mg Tablet Extended Release 24 Hr 300 mg PO DAILY goazpxknoq-qmhbbiruyiymt-djmo 50-300-40 mg capsule 1 cap PO DAILY PRN (Reason: caffeine) Label Comments: TAKE 1 CAPSULE BY MOUTH EVERY 4 HOURS NEEDED orphenadrine citrate 100 mg tablet extended release 100 mg PO BID Label Comments: TAKE 1 TABLET BY MOUTH TWICE DAILY FOR 10 DAYS fluoxetine [Prozac] 20 mg Capsule 20 mg PO DAILY Primary Care Provider: Henry Miner Referrals: Henry Miner [Primary Care Provider] - 3-5 Days Disposition Disposition: Home, Self Care
[2022-05-08 14:20] VITALS: BP 142/86; PULSE 98; RESP 18; O2SAT 100
[2022-05-08 14:40] LABS: Allen Test Positive; Base Excess -2 mmol/L (-2 to +2); Bicarbonate 22.2 mmol/L (22-26); Blood Gas Specimen Type ART; FI02 21; O2 Delivery Device Room Air; PO2 121 mmHG (75-100); SITE L Radial; SO2 99 % (95-99); Total Carbon Dioxide 23 mmol/L; pCO2 31.5 mmHg (35-45); pH 7.46 (7.35-7.45)
[2022-05-08 16:29] VITALS: BP 140/78; PULSE 71; RESP 15; O2SAT 98
== END 2022-05-08 16:34 | disposition home or self-care (01) ==
PROVIDERS: Emergency Provider Emergency Medicine; PCP Student in an Organized Health Care Education/Training Program; Visit Provider Emergency Medicine
DX: F45.8 Other somatoform disorders (principal); H53.8 Other visual disturbances; R42 Dizziness and giddiness; I10 Essential (primary) hypertension; F41.9 Anxiety disorder, unspecified; E78.5 Hyperlipidemia, unspecified; F32.A Depression, unspecified; R06.00 Dyspnea, unspecified; E66.9 Obesity, unspecified
CPT/HCPCS: 36600; 70450; 80048; 82803; 85025; 93005; 99285; A4216